=== PATIENT | female | born 1990 | race Caucasian/White ===

== ENCOUNTER 2017-07-23 19:05 | Emergency (ER) | payer OTHER ==
[2017-07-23 19:34] VITALS: BP 132/83
== END 2017-07-23 21:11 | disposition home or self-care (01) ==
LOC: ED 19:05
DX: S92.504A Nondisplaced unspecified fracture of right lesser toe(s), initial encounter for closed fracture (principal); X58.XXXA Exposure to other specified factors, initial encounter; Y93.89 Activity, other specified; Y99.8 Other external cause status; Y92.89 Other specified places as the place of occurrence of the external cause
CPT/HCPCS: J1885